=== PATIENT | male | born 1955 | race African-American/Black ===

== ENCOUNTER 2021-06-26 21:20 | Emergency (ER) | payer MEDICAID ==
[~2021-06-26] VITALS: Ht 175.3 cm; Wt 67.1 kg
[~2021-06-26 21:20] MED LIST: ALPR1TAB2 PO
--- NOTE | 2021-06-26 21:26 | NUR ---
PT CALLED, PT IN RESTROOM. WILL TRY AGAIN.
[2021-06-26 21:29] VITALS: BP 132/76
--- NOTE | 2021-06-26 21:35 | NUR ---
PT AMBULATED TO RESTROOM WITH EVEN AND STEADY GAIT, URINE SAMPLE COLLECTED.
--- NOTE | 2021-06-26 21:37 | NUR ---
PT REQUESTING TO WAIT IN CAR, MARIA DEL ROSARIO FLORIAN.
--- NOTE | 2021-06-26 21:45 | NUR ---
PT WILL BE WAITING OUTSIDE IN CHAIRS.
--- NOTE | 2021-06-26 22:16 | NUR ---
PT TAKEN TO BED 9
--- NOTE | 2021-06-26 23:08 | NUR ---
ERMD AT BEDSIDE FOR MEDICAL EVALUATION.
--- NOTE | 2021-06-26 23:20 | NUR ---
# 16 FR Funes catheter with 10 ml utilizing sterile technique. Immediate return of 700 ml yellow urine noted. Bedside drainage bag placed below level of bladder. Urine sample collected and sent to lab. Pt tolerated procedure well.
[2021-06-26] MEDS ORDERED: TAMS0.4C96 PO (23:42)
--- NOTE | 2021-06-27 00:51 | NUR ---
Dr. Mclean examining patient.
[2021-06-27 01:07] VITALS: BP 112/66
--- NOTE | 2021-06-27 01:10 | NUR ---
ADKINS CONVERTED TO LEG BAG WITH TEACHING PROVIDED. AFTERCARE GIVEN WITH RX SENT TO PHARMACY. PT AWAKE ALERTX3 AMBULATES STEADY HOME VIA POV WITH
== END 2021-06-27 01:10 | disposition home or self-care (01) ==
LOC: MED 21:20
DX: U07.1 COVID-19 (principal); R33.9 Retention of urine, unspecified; J45.909 Unspecified asthma, uncomplicated; Z79.899 Other long term (current) drug therapy
CPT/HCPCS: 51702; 81002; 99284

== ENCOUNTER 2022-03-04 12:54 | Emergency (ER) | payer OTHER ==
[~2022-03-04] VITALS: Ht 175.3 cm; Wt 76.3 kg
[~2022-03-04 12:54] MED LIST changes: +TAMS0.4C96 PO
[2022-03-04 13:00] VITALS: BP 147/96
--- NOTE | 2022-03-04 13:04 | NUR ---
pt amb to er bed 10
--- NOTE | 2022-03-04 13:30 | NUR ---
Natalio garrettkaryn in ED - 03/04/22 at 1552 by [id number] 66 Y/O FEMALE HAD HYSTERECTOMY 2 MONTHS AGO AND WENT FOR A FOLLOW UP VISIT TODAY, PATIENT HAS ABDOMINAL DISTENTION AND PAIN SO SHE WAS SENT TO ER.
[2022-03-04 15:53] VITALS: BP 131/88
--- NOTE | 2022-03-04 15:55 | NUR ---
Patient discharged with v/s stable. Written and verbal after care instructions given and explained. Patient alert, oriented and verbalized understanding of instructions. Ambulatory with steady gait. All questions addressed prior to discharge. ID band removed. Patient advised to follow up with PMD. NO Rx given. Patient educated on indication of medication including possible reaction and side effects. Opportunity to ask questions provided and answered. PT TO FOLLOW UP WITH UROLOGY APPT TOMORROW
== END 2022-03-04 15:53 | disposition home or self-care (01) ==
LOC: MED 12:54
DX: T83.091A Other mechanical complication of indwelling urethral catheter, initial encounter (principal); R33.9 Retention of urine, unspecified; J45.909 Unspecified asthma, uncomplicated; Z98.890 Other specified postprocedural states; Z79.899 Other long term (current) drug therapy; Y73.8 Miscellaneous gastroenterology and urology devices associated with adverse incidents, not elsewhere classified
CPT/HCPCS: 51702; 99284